=== PATIENT | female | born 1990 | race Caucasian/White ===

== ENCOUNTER 2024-02-15 11:44 | Emergency (ER) | payer MEDICAID ==
[~2024-02-15] VITALS: Ht 167.6 cm; Wt 68.2 kg
[2024-02-15] MEDS ORDERED: SULF1TAB49 PO (13:52)
[2024-02-15] MEDS ORDERED: INDO-12 PO (13:52)
[2024-02-15 14:04] VITALS: BP 118/68; PULSE 78; RESP 16; TEMP 98.9; O2SAT 98
== END 2024-02-15 14:05 | disposition home or self-care (01) ==
LOC: ER 11:45
DX: L02.512 Cutaneous abscess of left hand (principal)
CPT/HCPCS: 99283